=== PATIENT | female | born 1970 | race Hispanic/Latino ===

== ENCOUNTER → 2022-06-16 | Outpatient (CLI) | payer OTHER | LOC: MAMMO 11:41 | PROVIDERS: ATTEND Internal Medicine | DX: Z12.31 Encounter for screening mammogram for malignant neoplasm of breast (principal) | CPT/HCPCS: 77067 ==

== ENCOUNTER 2023-07-27 08:31 | Observation (INO) | payer OTHER ==
[~2023-07-27] VITALS: Ht 160 cm; Wt 87.1 kg
[~2023-07-27 08:31] MED LIST: ATENOLOL50 MG PO; HYDRALAZINE HCL25 MG PO; HYDROCODON-ACE1 EA11 PO; PANTOPRAZOLE SO40 MG PO; ROPIVACAINE 246.25 MG, EPINEPHRINE HCL 1:1000 1ML 0.5 MG, CLONIDINE HCL 0.08 MG, KETORO... INJ ONE; VALSARTAN-HCTZ1 EAC4 PO
[2023-07-27] MEDS ORDERED: CELECOXIB 200 MG CAP ONE (09:03)
[2023-07-27] MEDS ORDERED: GABAPENTIN 300 MG CAP ONE (09:03)
[2023-07-27] MEDS ORDERED: DEXAMETHASONE SOD PHOS 10 MG/1 ML VIAL ONE (09:03)
[2023-07-27] MEDS ORDERED: CEFAZOLIN SODIUM 2 GM ONE (09:04)
[2023-07-27] MEDS ORDERED: LACTATED RINGER'S 1,000 ML ONE (09:04)
[2023-07-27 09:26] LABS: BASOPHILS % 0.3 % (0.0-1.0); EOSINOPHILS # (AUTO) 0.1 (0.0-0.4); EOSINOPHILS % 1.6 % (0.0-6.0); HEMATOCRIT 40.4 % (34.2-44.1); HEMOGLOBIN 12.7 g/dL (12.0-16.0); LYMPHOCYTES # (AUTO) 1.4 (1.0-3.2); LYMPHOCYTES % 15.3 % (18.0-39.1); MEAN CORPUSCULAR HGB CONC 31.4 g/dL (31-35); MEAN CORPUSCULAR VOLUME 76.2 fL (81-99); MONOCYTES # (AUTO) 0.5 (0.2-0.8); MONOCYTES % 5.9 % (4.4-11.3); NEUTROPHILS # (AUTO) 6.9 (2.1-6.9); NEUTROPHILS % 76.3 % (38.7-80.0); PLATELET COUNT 226 x10e3/uL (140-360); RED CELL DISTRIBUTION WIDTH 15.3 % (11.7-14.4); WHITE BLOOD COUNT 8.98 x10e3/uL (4.8-10.8)
[2023-07-27 09:50] LABS: ANION GAP 13.8 mmol/L (8-16); CALCIUM 9.4 mg/dL (8.4-10.2); CREATININE, SERUM 0.8 mg/dL (0.57-1.11); POTASSIUM 3.8 mmol/L (3.5-5.1)
[2023-07-27] MEDS ORDERED: SODIUM CHLORIDE 0.9% 500ML 500 ML ONE (10:28)
[2023-07-27] MEDS ORDERED: Vancomycin IV 1,000 MG ONE (10:28)
[2023-07-27] MEDS ORDERED: TRANEXAMIC ACID 1,000 MG/10 ML ML ONE (10:43)
[2023-07-27] MEDS ORDERED: [UNRECOGNIZED DRUG - OTHER] ONE (10:43)
[2023-07-27] MEDS ORDERED: ONDANSETRON HCL INJ 2MG/ML 2ML 2 MG/ML VIAL IV PRN (12:45)
[2023-07-27] MEDS ORDERED: HYDROCODONE/APAP 5MG-325MG TAB PO PRN (12:45)
[2023-07-27] MEDS ORDERED: DOCUSATE SODIUM 100 MG CAP PO PRN (12:45)
[2023-07-27] MEDS ORDERED: DIPHENHYDRAMINE HCL INJ 50 MG/ML VIAL IV PRN (12:45)
[2023-07-27] MEDS ORDERED: PROPOFOL IV EMULSION 10 MG/ML 20 ML VIAL ONE (13:15)
[2023-07-27] MEDS ORDERED: LIDOCAINE HCL 2% LOCAL INJ 5 ML SDV VIAL INJ ONE (13:15)
[2023-07-27] MEDS ORDERED: ONDANSETRON HCL INJ 2MG/ML 2ML 2 MG/ML VIAL ONE (13:15)
[2023-07-27] MEDS ORDERED: EPHEDRINE SULFATE INJ 50 MG/ML VIAL ONE (13:15)
[2023-07-27] MEDS ORDERED: SEVOFLURANE INHAL SOLN 250 ML PEN BTL ONE (13:15)
[2023-07-27] MEDS ORDERED: DEXAMETHASONE SOD PHOS INJ 4 MG/ML SDV ONE (13:15)
[2023-07-27] MEDS ORDERED: EPINEPHRINE HCL 1:1000 1ML 1 MG/ML AMP ONE (13:49)
[2023-07-27] MEDS ORDERED: ROPIVACAINE 0.5% 5 MG/ML 30 ML SDV ONE (13:49)
[2023-07-27] MEDS: SODIUM CHLORIDE 0.9% 1000ML 1,000 ML IV SCH ×2 (16:00→21:21)
[2023-07-27] MEDS: HYDROCODONE/APAP 7.5MG-325MG 1 EA TAB PO PRN ×2 (18:14→22:04)
[2023-07-27] MEDS ORDERED: HYDROCODONE/APAP 7.5MG-325MG 1 EA TAB ONE (18:15)
[2023-07-27 20:01] VITALS: BP 142/72; PULSE 85; RESP 20; TEMP 98; O2SAT 100
[2023-07-27 20:28] VITALS: BP 142/72; PULSE 85; RESP 20; TEMP 98; O2SAT 100
[2023-07-27 20:32] VITALS: BP 142/72; PULSE 85; RESP 20; TEMP 98; O2SAT 100
[2023-07-27] MEDS: ASPIRIN 325 MG TAB PO SCH (21:18)
[2023-07-27] MEDS: CELECOXIB 100 MG CAP PO SCH (21:18)
[2023-07-28] VITALS (7 sets, daily range): BP systolic 95–122; BP diastolic 58–65; PULSE 64–84; RESP 17–20; TEMP 97.6–98.4; O2SAT 96–100
[2023-07-28] MEDS: SODIUM CHLORIDE 0.9% 1000ML 1,000 ML IV SCH (02:00)
[2023-07-28] MEDS: HYDROCODONE/APAP 7.5MG-325MG 1 EA TAB PO PRN ×3 (03:48→11:37)
[2023-07-28 05:54] LABS: HEMATOCRIT 33.8 % (34.2-44.1); HEMOGLOBIN 10.6 g/dL (12.0-16.0)
[2023-07-28] MEDS: CELECOXIB 100 MG CAP PO SCH (08:51)
[2023-07-28] MEDS: ASPIRIN 325 MG TAB PO SCH (08:52)
[2023-07-28] MEDS ORDERED: HYDRALAZINE HCL 25 MG TAB PO SCH (09:00)
[2023-07-28] MEDS ORDERED: ATENOLOL 50 MG TAB PO SCH (09:00)
[2023-07-28] MEDS ORDERED: PANTOPRAZOLE SOD 40 MG TABEC PO SCH (09:00)
[2023-07-28] MEDS ORDERED: ONDANSETRON HCL 4 MG ORAL DISINTEGRATING TAB PO PRN (11:00)
[2023-07-28] MEDS ORDERED: ACETAMINOPHEN 1000 MG/100 ML IV PRN (12:45)
== END 2023-07-28 14:10 | disposition home or self-care (01) ==
LOC: OR 08:31 → PACU V 13:27 → MED/SURG3 18:32
PROVIDERS: ADMIT Specialist; ATTEND Specialist
DX: M17.11 Unilateral primary osteoarthritis, right knee (principal); R26.2 Difficulty in walking, not elsewhere classified; M25.561 Pain in right knee; M06.9 Rheumatoid arthritis, unspecified; I10 Essential (primary) hypertension; E66.01 Morbid (severe) obesity due to excess calories; K21.9 Gastro-esophageal reflux disease without esophagitis; K29.70 Gastritis, unspecified, without bleeding; N20.0 Calculus of kidney; Z01.810 Encounter for preprocedural cardiovascular examination; Z01.812 Encounter for preprocedural laboratory examination; Z79.899 Other long term (current) drug therapy
CPT/HCPCS: 27447; 36415 ×3; 73560; 80048; 85014; 85018; 85025; 86850; 86900; 93005; 94799; 97110 ×2; 97116; 97161; 97530 ×2; C1713 ×2; C1776 ×4; G0378 ×2; J0171; J0690 ×2; J1100 ×2; J1885; J2001; J2405; J2704; J2795; J3370; J7030; J7040; J7121; S0164

== ENCOUNTER 2023-08-01 21:04 | Emergency (ER) | payer OTHER ==
[~2023-08-01] VITALS: Ht 160 cm; Wt 88.5 kg
[~2023-08-01 21:04] MED LIST changes: -ROPIVACAINE 246.25 MG, EPINEPHRINE HCL 1:1000 1ML 0.5 MG, CLONIDINE HCL 0.08 MG, KETORO... INJ ONE
[2023-08-01 21:11] VITALS: O2SAT 100
[2023-08-01 23:08] VITALS: BP 161/78; PULSE 84; RESP 19; TEMP 98.1
== END 2023-08-01 23:07 | disposition home or self-care (01) ==
LOC: ER 21:10
DX: M96.830 Postprocedural hemorrhage of a musculoskeletal structure following a musculoskeletal system procedure (principal); Z96.651 Presence of right artificial knee joint; R60.9 Edema, unspecified; I10 Essential (primary) hypertension
CPT/HCPCS: 93971; 99282

== ENCOUNTER 2023-12-01 08:25 | Outpatient (RCR) | payer OTHER | END 2023-12-29 | LOC: PT 08:25 | PROVIDERS: ATTEND Physician Assistant | DX: Z47.89 Encounter for other orthopedic aftercare (principal); Z96.651 Presence of right artificial knee joint ==

== ENCOUNTER 2024-09-13 06:05 | Observation (INO) | payer OTHER ==
[~2024-09-13] VITALS: Ht 160 cm; Wt 102.6 kg
[~2024-09-13 06:05] MED LIST changes: +BUPROPION HCL150 M2 PO; +HYDROXYZIN10 MG/5 ML PO; +OMEPRAZOLE40 MG PO
[2024-09-13] MEDS: CEFAZOLIN SODIUM 2 GM ONE (07:09)
[2024-09-13] MEDS: LACTATED RINGER'S 1,000 ML ONE (07:09)
[2024-09-13] MEDS: DEXAMETHASONE SOD PHOS 10 MG/1 ML VIAL ONE (07:10)
[2024-09-13] MEDS: CELECOXIB 200 MG CAP ONE (07:10)
[2024-09-13] MEDS: GABAPENTIN 300 MG CAP ONE (07:10)
[2024-09-13] MEDS ORDERED: ROPIVACAINE/EPI/CLONIDINE/KET 50 ML SYRINGE INJ ONE (07:30)
[2024-09-13] MEDS ORDERED: PROPOFOL IV EMULSION 10 MG/ML 20 ML VIAL ONE (08:06)
[2024-09-13] MEDS ORDERED: LIDOCAINE HCL 2% LOCAL INJ 5 ML SDV VIAL INJ ONE (08:06)
[2024-09-13] MEDS ORDERED: FENTANYL CITRATE/PF 100MCG/2 ML INJ ONE ×2 (08:45→09:15)
[2024-09-13] MEDS ORDERED: ACETAMINOPHEN 1000 MG/100 ML 100 ML IV ONE (08:57)
[2024-09-13] MEDS ORDERED: ONDANSETRON HCL INJ 2MG/ML 2ML 2 MG/ML VIAL ONE (08:58)
[2024-09-13] MEDS ORDERED: KETOROLAC TROMETHAMINE 30 MG/ML VIAL ONE (08:58)
[2024-09-13] MEDS ORDERED: DEXAMETHASONE SOD PHOS INJ 4 MG/ML SDV ONE (08:58)
[2024-09-13] MEDS ORDERED: GLYCOPYRROLATE INJ 0.2 MG/ML VIAL ONE (09:25)
[2024-09-13] MEDS ORDERED: HYDRALAZINE HCL 20 MG/ML VIAL ONE (09:30)
[2024-09-13] MEDS ORDERED: ESMOLOL HCL 100MG/10ML 10 MG/ML VIAL ONE ×2 (09:31→10:26)
[2024-09-13] MEDS ORDERED: METOPROLOL TARTRATE INJ 1 MG/ML VIAL ONE (09:42)
[2024-09-13] MEDS ORDERED: PHENYLEPHRINE HCL 1% 10 MG/ML VIAL ONE (10:07)
[2024-09-13] MEDS ORDERED: DIPHENHYDRAMINE HCL INJ 50 MG/ML VIAL IV PRN (10:15)
[2024-09-13] MEDS ORDERED: DOCUSATE SODIUM 100 MG CAP PO PRN (10:15)
[2024-09-13] MEDS ORDERED: ONDANSETRON HCL INJ 2MG/ML 2ML 2 MG/ML VIAL IV PRN (10:15)
[2024-09-13] MEDS: HYDROMORPHONE 1MG/1ML INJ ONE (11:09)
[2024-09-13] MEDS: HYDROCODONE/APAP 7.5MG-325MG 1 EA TAB PO ONE (12:15)
[2024-09-13] MEDS: ONDANSETRON HCL INJ 2MG/ML 2ML 2 MG/ML VIAL IV ONE (14:05)
[2024-09-13] MEDS: ONDANSETRON HCL INJ 2MG/ML 2ML 2 MG/ML VIAL ONE (14:05)
[2024-09-13] MEDS: HYDROCODONE/APAP 7.5MG-325MG 1 EA TAB ONE (14:55)
[2024-09-13] MEDS: SCOPOLAMINE 1 MG PATCH ONE (17:12)
[2024-09-13] MEDS: ROPIVACAINE/EPI/CLONIDINE/KET 50 ML SYRINGE INJ ONE (17:12)
[2024-09-13] MEDS: CELECOXIB 200 MG CAP PO SCH (18:04)
[2024-09-13] MEDS: SODIUM CHLORIDE 0.9% 1000ML 1,000 ML IV SCH (18:04)
[2024-09-13] MEDS: ASPIRIN 325 MG TAB PO SCH (18:04)
[2024-09-13 18:21] VITALS: BP 124/68; PULSE 62; RESP 16; TEMP 97.2; O2SAT 98
[2024-09-13] MEDS: HYDROCODONE/APAP 5MG-325MG TAB PO PRN (18:34)
[2024-09-13 20:00] VITALS: BP 120/65; PULSE 73; RESP 18; TEMP 98.8; O2SAT 100
[2024-09-14] VITALS (7 sets, daily range): BP systolic 104–133; BP diastolic 52–67; PULSE 63–70; RESP 18–20; TEMP 97.8–98.6; O2SAT 93–100
[2024-09-14 05:50] LABS: HEMATOCRIT 28.9 % (34.2-44.1); HEMOGLOBIN 9.1 g/dL (12.0-16.0)
[2024-09-14] MEDS ORDERED: BUPROPION HCL SR 150 MG TAB PO SCH (09:00)
[2024-09-14] MEDS: ATENOLOL 50 MG TAB PO SCH (09:04)
[2024-09-14] MEDS: PANTOPRAZOLE SOD 40 MG TABEC PO SCH (09:05)
[2024-09-14] MEDS ORDERED: ACETAMINOPHEN 1000 MG/100 ML IV PRN (10:15)
[2024-09-14] MEDS ORDERED: ASPIRIN81 MG PO (14:25)
[2024-09-14] MEDS: HYDROCODONE/APAP 7.5MG-325MG 1 EA TAB PO PRN (16:52)
[2024-09-15] MEDS ORDERED: NAPROXEN250 MG PO (08:35)
== END 2024-09-14 17:46 | disposition home health service (06) ==
LOC: OR 06:05 → PACU V 10:05 → MED/SURG2 17:20
PROVIDERS: ADMIT Specialist; ATTEND Specialist
DX: M17.12 Unilateral primary osteoarthritis, left knee (principal); Z96.651 Presence of right artificial knee joint; I10 Essential (primary) hypertension; E66.01 Morbid (severe) obesity due to excess calories; Z68.41 Body mass index [BMI] 40.0-44.9, adult; Z71.3 Dietary counseling and surveillance; Z71.82 Exercise counseling; R53.81 Other malaise; K21.9 Gastro-esophageal reflux disease without esophagitis; F32.A Depression, unspecified; F41.9 Anxiety disorder, unspecified; Z01.812 Encounter for preprocedural laboratory examination; Z79.899 Other long term (current) drug therapy; Z79.1 Long term (current) use of non-steroidal anti-inflammatories (NSAID); Z79.82 Long term (current) use of aspirin
CPT/HCPCS: 27447; 36415; 73560; 85014; 85018; 86850; 86900; 94799; 97110 ×2; 97116; 97161; 97530 ×2; C1713 ×2; C1776 ×4; G0378 ×2; J0131; J0360; J0690 ×2; J1100 ×2; J1171; J1885; J2003; J2371; J2405; J2704; J3010; J7030; J7121

== ENCOUNTER 2024-09-15 07:06 | Emergency (ER) | payer OTHER ==
[~2024-09-15] VITALS: Ht 160 cm; Wt 102.5 kg
[~2024-09-15 07:06] MED LIST changes: +ASPIRIN81 MG PO
[2024-09-15 07:23] VITALS: TEMP 98.1
[2024-09-15] MEDS ORDERED: ONDANSETRON HCL INJ 2MG/ML 2ML 2 MG/ML VIAL ONE (07:46)
[2024-09-15] MEDS: KETOROLAC TROMETHAMINE 30 MG/ML VIAL IV STA (07:56)
[2024-09-15] MEDS: Morphine 4mg INJECTION 4 MG/ML INJ IV ONE (07:57)
[2024-09-15] MEDS: ONDANSETRON HCL INJ 2MG/ML 2ML 2 MG/ML VIAL IV STA (07:57)
[2024-09-15] MEDS ORDERED: NAPROXEN250 MG PO (08:35)
[2024-09-15 08:45] VITALS: PULSE 72; RESP 20; O2SAT 100
== END 2024-09-15 08:55 | disposition home or self-care (01) ==
LOC: ER 07:17
DX: G89.18 Other acute postprocedural pain (principal); Z96.652 Presence of left artificial knee joint; I10 Essential (primary) hypertension
CPT/HCPCS: 73560; 99283; J1885; J2270; J2405

== ENCOUNTER → 2024-09-30 | Outpatient (RCR) | payer OTHER ==
[~2024-09-30] MED LIST changes: +NAPROXEN250 MG PO
== END ==
LOC: PT 09-16 08:53
PROVIDERS: ATTEND Physician Assistant
DX: Z47.1 Aftercare following joint replacement surgery (principal); Z96.652 Presence of left artificial knee joint

== ENCOUNTER 2024-10-26 08:49 | Outpatient (RCR) | payer OTHER | END 2024-10-28 | LOC: PT 08:49 | PROVIDERS: ATTEND Physician Assistant | DX: Z47.1 Aftercare following joint replacement surgery (principal); Z96.652 Presence of left artificial knee joint ==

== ENCOUNTER → 2024-11-28 | Outpatient (RCR) | payer OTHER | LOC: PT 10-31 07:35 | PROVIDERS: ATTEND Physician Assistant | DX: Z47.1 Aftercare following joint replacement surgery (principal); Z96.652 Presence of left artificial knee joint; M62.81 Muscle weakness (generalized); M25.561 Pain in right knee; M25.661 Stiffness of right knee, not elsewhere classified ==

== ENCOUNTER 2024-12-14 13:00 | Outpatient (RCR) | payer OTHER | END 2024-12-28 | LOC: PT 13:00 | PROVIDERS: ATTEND Physician Assistant | DX: Z47.1 Aftercare following joint replacement surgery (principal); Z96.652 Presence of left artificial knee joint; M25.562 Pain in left knee; M25.662 Stiffness of left knee, not elsewhere classified; M62.81 Muscle weakness (generalized) ==